=== PATIENT | male | born 1990 | race Two or more races ===

== ENCOUNTER 2019-09-09 14:22 | Emergency (ER) | payer SELFPAY ==
[~2019-09-09] VITALS: Ht 165.1 cm; Wt 68.0 kg
--- NOTE | 2019-09-09 14:45 | NUR ---
feeling anxious since this morning s/p drinking coffee. "I think I have high blood pressure" Patient a/ox4, breathing even and unlabored, no sob ntoed. attached to the lunchroom monitor.
--- NOTE | 2019-09-09 15:10 | NUR ---
ty buck pa at bedside for eval.
[2019-09-09 15:42] VITALS: BP 156/80
--- NOTE | 2019-09-09 15:42 | NUR ---
PATIENT SEEN AND EVALUATED BY [facility], PATIENT IS MEDICALLY CLEARED. ADVISED TO FOLLOW UP WITH PMD. Patient discharged to home in stable condition. Written and verbal after care instructions given. Patient verbalizes understanding of instruction.
== END 2019-09-09 15:51 | disposition home or self-care (01) ==
LOC: ER 14:27
DX: R00.2 Palpitations (principal); I10 Essential (primary) hypertension